=== PATIENT | male | born 1945 | race Caucasian/White ===

== ENCOUNTER 2020-10-26 19:08 | Inpatient (IN) | payer MEDICARE ==
[2020-10-26] MEDS ORDERED: Acetaminophen 325 MG TAB PO PRN (22:01)
[2020-10-26] MEDS ORDERED: Ondansetron ODT 4 MG TAB PO PRN (22:01)
[2020-10-26 22:42] VITALS: BMI 23.3
[2020-10-27 05:00] LABS: Anion Gap 12 mmol/L (10-20); BUN (Urea Nitrogen) 28 mg/dL (8.4-25.7); Calc. Creatinine Clearance 57 mL/min (70-130); Carbon Dioxide 25 mmol/L (23-31); Chloride 101 mmol/L (98-107); Glucose 67 mg/dL (83-110); Potassium 3.4 mmol/L (3.5-5.1); Sodium 135 mmol/L (136-145)
[2020-10-27 05:17] LABS: Eosinophils 5 % (0-10); Hemoglobin 11.1 g/dL (14.0-18.0); Lymphocytes 17 % (21-51); MDiff Complete? YES; Mean Corpuscular HGB CONC 33.2 g/dL (32.0-36.0); Mean Corpuscular Hemoglobin 34.8 pg (27.0-31.0); Monocytes 8 % (0-10); Neutrophil 70 % (42-75); Platelet Count 165 thou/uL (130-400); Platelet Morphology Comment Appears Adequate; RBC Distribution Width 15.4 % (11.5-14.5); White Blood Cell (WBC) Count 4.6 thou/uL (4.8-10.8)
[2020-10-27] MEDS ORDERED: Levothyroxine 150 MCG TAB PO SCH (06:00)
[2020-10-27 08:04] LABS: Thyroid Stimulating Hormone 3.2753 uIU/mL (0.35-4.94)
[2020-10-27] MEDS ORDERED: Furosemide 40 MG TAB PO SCH (09:00)
[2020-10-27] MEDS ORDERED: Propranolol 10 MG TAB PO SCH (09:00)
[2020-10-27] MEDS ORDERED: Spironolactone 25 MG TAB PO SCH (09:00)
[2020-10-27] MEDS ORDERED: Potassium Chloride 20 MEQ TAB PO SCH (09:45)
[2020-10-27 16:34] VITALS: BP 133/79; TEMP 98.3
[2020-10-27] MEDS ORDERED: traZODone HCl 150 MG TAB PO SCH (21:00)
[2020-10-28] MEDS ORDERED: Folic Acid 1 MG TAB PO SCH (09:00)
== END 2020-10-27 18:17 | disposition home or self-care (01) | DRG 310 ==
LOC: 2NO 20:54
PROVIDERS: ADMIT Family Medicine; ATTEND Family Medicine
DX: I48.91 Unspecified atrial fibrillation (principal); I10 Essential (primary) hypertension; E03.9 Hypothyroidism, unspecified; D53.9 Nutritional anemia, unspecified; Z86.19 Personal history of other infectious and parasitic diseases; Z90.49 Acquired absence of other specified parts of digestive tract; Z80.3 Family history of malignant neoplasm of breast; Z82.49 Family history of ischemic heart disease and other diseases of the circulatory system; K74.60 Unspecified cirrhosis of liver
CPT/HCPCS: 36415; 71045; 80048; 82607; 82746; 84443; 85025; 93005; 93010; 93306